=== PATIENT | male | born 1975 | race Caucasian/White ===

== ENCOUNTER 2018-07-25 09:50 | Emergency (ER) | payer SELFPAY ==
--- NOTE | 2018-07-25 10:14 | ER ---
Nurse's Notes [facility] Name: Keyshawn Abernathy Age: 42 yrs Sex: Male : 1975 Arrival Date: 07/25/2018 Time: 09:55 Bed 12 Private MD: None, None Diagnosis: Acute sinusitis;Otitis media, unspecified, right ear Presentation: 07/25 10:03 Presenting complaint: Patient states: I have been sick with sinus pressure, cough, la1 congestion since Sunday and work sent me home yesterday and said I couldn't come back without a note. Transition of care: patient was not received from another setting of care. Onset of symptoms was July 25, 2018. Risk Assessment: Do you want to hurt yourself or someone else? Patient reports no desire to harm self or others. Initial Sepsis Screen: Does the patient meet any 2 criteria? No. Patient's initial sepsis screen is negative. Does the patient have a suspected source of infection? No. Patient's initial sepsis screen is negative. Care prior to arrival: None. 10:03 Method Of Arrival: Ambulatory la1 10:03 Acuity: DOROTEO 4 la1 Historical: - Allergies: 10:04 Codeine; la1 - PMHx: 10:04 None; la1 - Immunization history:: Adult Immunizations up to date. - Social history:: Smoking status: Patient/guardian denies using tobacco. - Ebola Screening: : No symptoms or risks identified at this time. Screenin:05 Abuse screen: Denies threats or abuse. Nutritional screening: No deficits noted. la1 Tuberculosis screening: No symptoms or risk factors identified. Fall Risk None identified. Assessment: 10:05 General: Appears in no apparent distress. Behavior is calm, cooperative. Pain: la1 Complains of pain in forehead. Neuro: Level of Consciousness is awake, alert, obeys commands, Oriented to person, place, time, situation. Cardiovascular: Capillary refill < 3 seconds Patient's skin is warm and dry. Respiratory: Airway is patent Respiratory effort is even, unlabored, Respiratory pattern is regular, symmetrical, Breath sounds are clear bilaterally. Respiratory: Reports cough that is productive. GI: No signs and/or symptoms were reported involving the gastrointestinal system. : No signs and/or symptoms were reported regarding the genitourinary system. Vital Signs: 10:04 BP 140 / 90; Pulse 71; Resp 16; Temp 98.0; Pulse Ox 98% on R/A; Weight 117.93 kg; la1 Height 5 ft. 11 in. (180.34 cm); 10:04 Body Mass Index 36.26 (117.93 kg, 180.34 cm) la1 ED Course: 09:55 Patient arrived in ED. sb2 09:55 None, None is Private Physician. sb2 09:56 Yaz Fields FNP-C is [facility]. kb 09:56 Ángel Enciso MD is Attending Physician. kb 10:04 Triage completed. la1 10:05 Arm band placed on left wrist. la1 10:05 Call light in reach. Side rails up X 1. la1 10:06 No provider procedures requiring assistance completed. Patient did not have IV access la1 during this emergency room visit. 10:21 Bernice Daniels, RN is Primary Nurse. iw Administered Medications: No medications were administered Outcome: 10:13 Discharge ordered by . kb 10:20 Discharged to home ambulatory. iw 10:20 Condition: good 10:20 Discharge instructions given to patient, Instructed on discharge instructions, follow up and referral plans. medication usage, Demonstrated understanding of instructions, follow-up care, medications, Prescriptions given X 1. 10:21 Patient left the ED. iw Signatures: Yaz Fields FNP-C FNP-Ckb Williams, Irene, RN BITA iw Yonatan Mann RN RN la1 Gena Florence sb2
--- NOTE | 2018-07-25 10:14 | EDPHYS ---
Physician Documentation [facility] Name: Keyshawn Abernathy Age: 42 yrs Sex: Male : 1975 Arrival Date: 07/25/2018 Time: 09:55 Bed 12 Private MD: None, None ED Physician Ángel Enciso HPI: 07/25 10:12 This 42 yrs old Male presents to ER via Ambulatory with complaints of Flu kb Symptoms. 10:12 The patient or guardian reports cough, that is intermittent, described as moderate, kb with productive sputum, that is green, flu symptoms, low-grade fever, myalgias. Onset: The symptoms/episode began/occurred 5 day(s) ago. Severity of symptoms: At their worst the symptoms were moderate, in the emergency department the symptoms have improved, mildly. Modifying factors: The symptoms are alleviated by nothing, the symptoms are aggravated by nothing. Associated signs and symptoms: Pertinent positives: earache, fever, sore throat, Pertinent negatives: chest pain, diarrhea, nausea, rhinorrhea, vomiting. The patient has not experienced similar symptoms in the past. The patient has not recently seen a physician. Historical: - Allergies: 10:04 Codeine; la1 - PMHx: 10:04 None; la1 - Immunization history:: Adult Immunizations up to date. - Social history:: Smoking status: Patient/guardian denies using tobacco. - Ebola Screening: : No symptoms or risks identified at this time. ROS: 10:10 Cardiovascular: Negative for chest pain, palpitations, and edema, Abdomen/GI: Negative kb for abdominal pain, nausea, vomiting, diarrhea, and constipation, Back: Negative for injury and pain, : Negative for injury, bleeding, discharge, and swelling, MS/Extremity: Negative for injury and deformity, Skin: Negative for injury, rash, and discoloration, Neuro: Negative for headache, weakness, numbness, tingling, and seizure. 10:10 Constitutional: Positive for fever, Negative for body aches, chills, fatigue, malaise, poor PO intake, weight loss. 10:10 ENT: Positive for ear pain, sinus congestion, sinus pain, sore throat. 10:10 Respiratory: Positive for cough, Negative for dyspnea on exertion, hemoptysis, orthopnea, pleurisy, shortness of breath, sputum production, wheezing. Exam: 10:12 Constitutional: This is a well developed, well nourished patient who is awake, alert, kb and in no acute distress. Neck: Trachea midline, no thyromegaly or masses palpated, and no cervical lymphadenopathy. Supple, full range of motion without nuchal rigidity, or vertebral point tenderness. No Meningismus. Chest/axilla: Normal chest wall appearance and motion. Nontender with no deformity. No lesions are appreciated. Cardiovascular: Regular rate and rhythm with a normal S1 and S2. No gallops, murmurs, or rubs. Normal PMI, no JVD. No pulse deficits. Respiratory: Lungs have equal breath sounds bilaterally, clear to auscultation and percussion. No rales, rhonchi or wheezes noted. No increased work of breathing, no retractions or nasal flaring. Abdomen/GI: Soft, non-tender, with normal bowel sounds. No distension or tympany. No guarding or rebound. No evidence of tenderness throughout. Skin: Warm, dry with normal turgor. Normal color with no rashes, no lesions, and no evidence of cellulitis. MS/ Extremity: Pulses equal, no cyanosis. Neurovascular intact. Full, normal range of motion. Neuro: Awake and alert, GCS 15, oriented to person, place, time, and situation. Cranial nerves II-XII grossly intact. Motor strength 5/5 in all extremities. Sensory grossly intact. Cerebellar exam normal. Normal gait. 10:12 Head/face: Sinus tenderness, that is marked, is located over the right ethmoid sinus and right maxillary sinus. 10:12 ENT: TM's: bulging, on the right, erythema, that is mild, on the right. Vital Signs: 10:04 BP 140 / 90; Pulse 71; Resp 16; Temp 98.0; Pulse Ox 98% on R/A; Weight 117.93 kg; la1 Height 5 ft. 11 in. (180.34 cm); 10:04 Body Mass Index 36.26 (117.93 kg, 180.34 cm) la1 MDM: 10:06 Patient medically screened. kb 10:11 Data reviewed: vital signs, nurses notes. Data interpreted: Pulse oximetry: on room air kb is 98 %. Interpretation: normal. Counseling: I had a detailed discussion with the patient and/or guardian regarding: the historical points, exam findings, and any diagnostic results supporting the discharge/admit diagnosis, the need for outpatient follow up, a family practitioner, to return to the emergency department if symptoms worsen or persist or if there are any questions or concerns that arise at home. Administered Medications: No medications were administered Disposition: 10:23 Co-signature as Attending Physician, Ángel Enciso MD. rn Disposition: 07/25/18 10:13 Discharged to Home. Impression: Acute sinusitis, Otitis media, unspecified, right ear. - Condition is Stable. - Discharge Instructions: Otitis Media, Adult, [id number], Sinusitis, Adult, [id number]. - Prescriptions for Amoxicillin 875 mg Oral Tablet - take 1 tablet by ORAL route every 12 hours for 7 days; 14 tablet. - Medication Reconciliation Form, Thank You Letter, Antibiotic Education, Prescription Opioid Use, Work release form form. - Follow up: Emergency Department; When: As needed; Reason: Worsening of condition. Follow up: Private Physician; When: 2 - 3 days; Reason: Recheck today's complaints, Continuance of care, Re-evaluation by your physician. Signatures: Yaz Fields, LIMNOLOGIST-C LIMNOLOGIST-Ckb Bernice Daniels, RN Ángel Singh MD MD rn Attema, Lee, RN RN la1 Corrections: (The following items were deleted from the chart) 10:21 10:13 07/25/2018 10:13 Discharged to Home. Impression: Acute sinusitis; Otitis media, iw unspecified, right ear. Condition is Stable. Forms are Medication Reconciliation Form, Thank You Letter, Antibiotic Education, Prescription Opioid Use. Follow up: Emergency Department; When: As needed; Reason: Worsening of condition. Follow up: Private Physician; When: 2 - 3 days; Reason: Recheck today's complaints, Continuance of care, Re-evaluation by your physician. kb
== END 2018-07-25 10:21 | disposition home or self-care (01) ==
LOC: ER 09:50
DX: J01.90 Acute sinusitis, unspecified (principal); H66.91 Otitis media, unspecified, right ear; Z88.5 Allergy status to narcotic agent
CPT/HCPCS: 99282

== ENCOUNTER 2018-11-05 14:14 | Emergency (ER) | payer BC, SELFPAY ==
--- OUTSIDE RECORDS SUMMARY | 2018-11-05 14:16 | XMS REPORT | Clinical Summary ---
:1975 [facility] Address [address] [place] [address] Care Team Providers Name Role Phone Popeye Primary Care Provider Allergies Active Allergy Reactions Severity Noted Date Comments Codeine 05/28/2013 Medications Medication Sig Dispensed Refills Start Date End Date Status HYDROcodone-acetaminop Take 1 tablet by 30 tablet 0 06/25/2013 Active hen (NORCO 5-325) mouth 2 (two) 5-325 mg per tablet times daily as needed. divalproex (DEPAKOTE) Take 500 mg by 0 Active 500 MG EC tablet mouth 2 (two) times daily. QUEtiapine (SEROQUEL) Take 50 mg by 0 Active 50 MG tablet mouth nightly. Active Problems Problem Noted Date Cellulitis and abscess of leg 06/24/2013 Abscess 06/23/2013 Family History Medical History Relation Name Comments Unremarkable Father Cancer Maternal Aunt Unremarkable Mother Cancer Paternal Aunt Diabetes Son Relation Name Status Comments Father Maternal Aunt Maternal Grandfather Maternal Grandmother Mother Paternal Aunt Alive Paternal Grandfather Paternal Grandmother Son Social History Tobacco Use Types Packs/Day Years Used Date Never Smoker Smokeless Tobacco: Current User Comments: A can a day for 33 years Alcohol Use Drinks/Week oz/Week Comments Yes 2 Cans of beer 1.2 Sex Assigned at Date Recorded Not on file Job Start Date Occupation Industry Not on file Not on file Not on file Travel History Travel Start Travel End No recent travel history available. Last Filed Vital Signs Not on file Plan of Treatment Not on file Results Not on fileafter 11/04/2017 Advance Directives For more information, please contact:[facility] [place], [place] [phone] Code Status Date Activated Date Inactivated Comments Code ONE 06/23/2013 2:18 PM 06/25/2013 12:53 PM
--- OUTSIDE RECORDS SUMMARY | 2018-11-05 14:17 | XMS REPORT ---
:1975 [facility] Address [address] [place] [address] Care Team Providers Name Role Phone JUAN LUIS TORRES Unavailable Unavailable Problems This patient has no known problems. Allergies, Adverse Reactions, Alerts This patient has no known allergies or adverse reactions. Medications This patient has no known medications. Results Test Description Test Time Test Comments Text Results Atomic Results Result Comments CREATINE KINASE (CK), TOTAL AND MB 2017-04-05 10:08:00 Test Item Value Reference Range Comments CREATINE KINASE TOTAL (BEAKER) (test myan=210) 330 U/L 30-300 CREATINE KINASE-MB (BEAKER) (test mith=461) 3.4 ng/mL 0.0-4.9 CREATINE KINASE-MB INDEX (BEAKER) (test npbk=236) 1.0 % CK-MB Reference Range:<5 Normal5-10 Borderline>10 AbnormalTROPONIN [id number] 10:08:00 Test Item Value Reference Range Comments TROPONIN I (BEAKER) (test jkre=827) < ng/mL 0.00-0.15 Troponin I (TnI) levels must be interpreted in the context of the presenting symptoms and the clinical findings. Elevated TnI levels indicate myocardial damage, but are not specific for ischemic heart disease. Elevated TnI levels are seen in patients with other cardiac conditions (including myocarditis and congestive heart failure), and slight TnI elevations occur in patients with other conditions, including sepsis, renal failure, acidosis, acute neurological disease, and persistent tachyarrhythmia.COMPREHENSIVE METABOLIC [id number] 10:00:00 Test Item Value Reference Range Comments TOTAL PROTEIN (BEAKER) 7.7 gm/dL 6.0-8.5 (test osjo=360) ALBUMIN (BEAKER) (test 4.3 g/dL 3.5-5.0 tqyd=1640) ALKALINE PHOSPHATASE 46 U/L 30-115 (BEAKER) (test ugue=828) BILIRUBIN TOTAL (BEAKER) 0.4 mg/dL 0.1-1.3 (test wiqv=182) SODIUM (BEAKER) (test 141 meq/L 135-148 oijq=003) POTASSIUM (BEAKER) (test 3.9 meq/L 3.5-5.5 fuxz=072) CHLORIDE (BEAKER) (test 106 meq/L 98-106 vive=775) CO2 (BEAKER) (test 23 meq/L 20-31 cqhj=698) BLOOD UREA NITROGEN 15 mg/dL 10-26 (BEAKER) (test tgmo=892) CREATININE (BEAKER) (test 1.00 mg/dL 0.50-1.20 wcdi=837) GLUCOSE RANDOM (BEAKER) 108 mg/dL 70-110 (test uyiz=252) CALCIUM (BEAKER) (test 9.3 mg/dL 8.5-10.5 qduf=260) AST (SGOT) (BEAKER) (test 26 U/L 5-40 jdww=560) ALT (SGPT) (BEAKER) (test 25 U/L 6-50 nrjp=838) EGFR (BEAKER) (test 82 mL/min/1.73 sq m ESTIMATED GFR IS NOT fkob=6120) ACCURATE CREATININE CLEARANCE IN PREDICTING GLOMERULAR FILTRATION RATE. ESTIMATED GFR IS NOT APPLICABLE FOR DIALYSIS PATIENTS. URINALYSIS W/ [id number] 09:48:00 Test Item Value Reference Range Comments COLOR (BEAKER) (test nyca=068) Yellow CLARITY (BEAKER) (test idxa=022) Clear SPECIFIC GRAVITY UA (BEAKER) (test cxsb=943) 1.024 1.001-1.035 PH UA (BEAKER) (test rete=309) 5.0 5.0-8.0 PROTEIN UA (BEAKER) (test gbyh=614) Negative Negative GLUCOSE UA (BEAKER) (test sdmv=998) Negative Negative KETONES UA (BEAKER) (test ukvf=706) Negative Negative BILIRUBIN UA (BEAKER) (test vmji=099) Negative Negative BLOOD UA (BEAKER) (test tnmj=498) Negative Negative NITRITE UA (BEAKER) (test gfiz=453) Negative Negative LEUKOCYTE ESTERASE UA (BEAKER) (test lgzz=639) Trace Negative UROBILINOGEN UA (BEAKER) (test ktde=711) < mg/dL 0.2-1.0 RBC UA (BEAKER) (test fdpl=780) < /HPF WBC UA (BEAKER) (test zbrl=756) 4 /HPF MUCUS (BEAKER) (test mzhi=8546) Rare SQUAMOUS EPITHELIAL (BEAKER) (test efmf=070) 1 /HPF SOURCE(BEAKER) (test iswp=2025) CBC W/PLT COUNT & AUTO [id number] 09:33:00 Test Item Value Reference Range Comments WHITE BLOOD CELL COUNT (BEAKER) (test meiw=868) 7.4 K/ L 4.0-10.0 RED BLOOD CELL COUNT (BEAKER) (test vcok=446) 4.95 M/ L 4.20-5.80 HEMOGLOBIN (BEAKER) (test qkyf=780) 14.4 GM/DL 13.0-16.8 HEMATOCRIT (BEAKER) (test vpym=791) 44.1 % 40.0-50.0 MEAN CORPUSCULAR VOLUME (BEAKER) (test lwgf=538) 89.1 fL 82.0-98.0 MEAN CORPUSCULAR HEMOGLOBIN (BEAKER) (test 29.1 pg 27.0-33.0 shtb=975) MEAN CORPUSCULAR HEMOGLOBIN CONC (BEAKER) (test 32.7 GM/DL 32.0-36.0 ihzh=643) RED CELL DISTRIBUTION WIDTH (BEAKER) (test 14.1 % 12.0-15.0 iczk=822) PLATELET COUNT (BEAKER) (test ksur=139) 319 K/CU MM 150-430 MEAN PLATELET VOLUME (BEAKER) (test sqmy=918) 8.4 fL 6.5-10.5 NUCLEATED RED BLOOD CELLS (BEAKER) (test 0 /100 WBC 0-0 csla=670) NEUTROPHILS RELATIVE PERCENT (BEAKER) (test 52 % thek=698) LYMPHOCYTES RELATIVE PERCENT (BEAKER) (test 31 % cxrj=258) MONOCYTES RELATIVE PERCENT (BEAKER) (test 10 % erdl=705) EOSINOPHILS RELATIVE PERCENT (BEAKER) (test 5 % cnti=624) BASOPHILS RELATIVE PERCENT (BEAKER) (test 1 % ojjj=343) NEUTROPHILS ABSOLUTE COUNT (BEAKER) (test 3.80 K/ L 1.80-8.00 kyyt=929) LYMPHOCYTES ABSOLUTE COUNT (BEAKER) (test 2.30 K/ L 1.48-4.50 sbez=494) MONOCYTES ABSOLUTE COUNT (BEAKER) (test 0.80 K/ L 0.00-1.30 qill=315) EOSINOPHILS ABSOLUTE COUNT (BEAKER) (test 0.40 K/ L 0.00-0.50 hzrn=182) BASOPHILS ABSOLUTE COUNT (BEAKER) (test 0.10 K/ L 0.00-0.20 cgdg=321)
--- NOTE | 2018-11-05 14:45 | EDPHYS ---
Physician Documentation [facility] Name: Keyshawn Abernathy Age: 42 yrs Sex: Male : 1975 Arrival Date: 11/05/2018 Time: 14:18 Bed 9 Private MD: ED Physician Jun Rachel HPI: 11/05 14:43 This 42 yrs old Male presents to ER via Ambulatory with complaints of Knee ma2 Pain. 14:43 The patient presents with pain. The complaints affect the lateral aspect of right knee ma2 and medial aspect of right knee. Onset: The symptoms/episode began/occurred gradually, 2 year(s) ago. Associated signs and symptoms: Pertinent negatives calf tenderness, numbness, swelling, vomiting. Severity of symptoms: At their worst the symptoms were mild, moderate, in the emergency department the symptoms have resolved. The patient has experienced similar episodes in the past. Historical: - Allergies: 14:21 Codeine; sv - PMHx: 14:21 None; sv - PSHx: 14:21 None; sv - Immunization history:: Flu vaccine is not up to date. - Social history:: Smoking status: Patient uses tobacco products, chewing tobacco, Patient/guardian denies using alcohol, street drugs, The patient lives with family. - Ebola Screening: : No symptoms or risks identified at this time. - Family history:: not pertinent. ROS: 14:43 Constitutional: Negative for fever, chills, and weight loss, Cardiovascular: Negative ma2 for chest pain, palpitations, and edema. 14:43 All other systems are negative. Exam: 14:43 Constitutional: This is a well developed, well nourished patient who is awake, alert, ma2 and in no acute distress. Chest/axilla: Normal chest wall appearance and motion. Nontender with no deformity. No lesions are appreciated. Cardiovascular: Regular rate and rhythm with a normal S1 and S2. No gallops, murmurs, or rubs. Normal PMI, no JVD. No pulse deficits. Respiratory: Lungs have equal breath sounds bilaterally, clear to auscultation and percussion. No rales, rhonchi or wheezes noted. No increased work of breathing, no retractions or nasal flaring. Abdomen/GI: Soft, non-tender, with normal bowel sounds. No distension or tympany. No guarding or rebound. No evidence of tenderness throughout. Skin: Warm, dry with normal turgor. Normal color with no rashes, no lesions, and no evidence of cellulitis. MS/ Extremity: Pulses equal, no cyanosis. Neurovascular intact. Full, normal range of motion. Neuro: Awake and alert, GCS 15, oriented to person, place, time, and situation. Cranial nerves II-XII grossly intact. Motor strength 5/5 in all extremities. Sensory grossly intact. Cerebellar exam normal. Normal gait. Vital Signs: 14:21 BP 138 / 90; Pulse 72; Resp 18; Temp 98.3; Pulse Ox 97% ; Weight 104.33 kg; Height 5 sv ft. 11 in. (180.34 cm); Pain 6/10; 14:21 Body Mass Index 32.08 (104.33 kg, 180.34 cm) sv MDM: 14:36 Patient medically screened. ma2 14:43 Differential diagnosis: contusion, abrasion, tendonitis. Data reviewed: vital signs, ma2 nurses notes. Counseling: I had a detailed discussion with the patient and/or guardian regarding: the historical points, exam findings, and any diagnostic results supporting the discharge/admit diagnosis, the presence of at least one elevated blood pressure reading (>120/80) during this emergency department visit, the need for outpatient follow up. Administered Medications: No medications were administered Disposition: 11/05/18 14:44 Discharged to Home. Impression: Pain in right knee. - Condition is Stable. - Discharge Instructions: Knee Pain. - Prescriptions for Tylenol- Codeine #3 300-30 mg Oral Tablet - take 2 tablet by ORAL route every 6 hours As needed; 30 tablet. - Medication Reconciliation Form, Thank You Letter, Antibiotic Education, Prescription Opioid Use form. - Follow up: Private Physician; When: Tomorrow; Reason: If symptoms return, Continuance of care. Signatures: Brisa Wolff RN RN sv Smirch, Shelby, RN RN ss Alzahri, Mohammad, MD MD ma2 Corrections: (The following items were deleted from the chart) 14:58 14:44 11/05/2018 14:44 Discharged to Home. Impression: Pain in right knee. Condition is ss Stable. Forms are Medication Reconciliation Form, Thank You Letter, Antibiotic Education, Prescription Opioid Use. Follow up: Private Physician; When: Tomorrow; Reason: If symptoms return, Continuance of care. ma2
--- NOTE | 2018-11-05 14:45 | ER ---
Nurse's Notes [facility] Name: Keyshawn Abernathy Age: 42 yrs Sex: Male : 1975 Arrival Date: 11/05/2018 Time: 14:18 Bed 9 Private MD: Diagnosis: Pain in right knee Presentation: 11/05 14:20 Presenting complaint: Patient states: right knee pain/swelling x 1 day. Transition of sv care: patient was not received from another setting of care. Onset of symptoms was November 04, 2018. Care prior to arrival: None. 14:20 Method Of Arrival: Ambulatory sv 14:20 Acuity: DOROTEO 4 sv 14:57 Risk Assessment: Do you want to hurt yourself or someone else? Patient reports no ss desire to harm self or others. Initial Sepsis Screen: Does the patient meet any 2 criteria? No. Patient's initial sepsis screen is negative. Does the patient have a suspected source of infection? No. Patient's initial sepsis screen is negative. Triage Assessment: 14:20 General: Appears in no apparent distress. uncomfortable, well developed, Behavior is sv calm, cooperative, appropriate for age. Pain: Complains of pain in right knee Pain currently is 6 out of 10 on a pain scale. Neuro: Level of Consciousness is awake, alert, obeys commands, Oriented to person, place, time, situation, Gait is steady. Respiratory: Respiratory effort is even, unlabored, Respiratory pattern is regular, symmetrical. Historical: - Allergies: 14:21 Codeine; sv - PMHx: 14:21 None; sv - PSHx: 14:21 None; sv - Immunization history:: Flu vaccine is not up to date. - Social history:: Smoking status: Patient uses tobacco products, chewing tobacco, Patient/guardian denies using alcohol, street drugs, The patient lives with family. - Ebola Screening: : No symptoms or risks identified at this time. - Family history:: not pertinent. Screenin:56 Abuse screen: Denies threats or abuse. Denies injuries from another. Nutritional ss screening: No deficits noted. Tuberculosis screening: No symptoms or risk factors identified. Never had TB. Fall Risk None identified. Assessment: 14:57 Reassessment: Patient appears in no apparent distress at this time. Patient and/or ss family updated on plan of care and expected duration. Pain level reassessed. Patient is alert, oriented x 3, equal unlabored respirations, skin warm/dry/pink. Vital Signs: 14:21 BP 138 / 90; Pulse 72; Resp 18; Temp 98.3; Pulse Ox 97% ; Weight 104.33 kg; Height 5 sv ft. 11 in. (180.34 cm); Pain 6/10; 14:21 Body Mass Index 32.08 (104.33 kg, 180.34 cm) sv ED Course: 14:18 Patient arrived in ED. mr 14:21 Triage completed. sv 14:21 Arm band placed on. sv 14:36 Jun Rachel MD is Attending Physician. ma2 14:56 Rochelle Savage, BITA is Primary Nurse. ss 14:56 Patient has correct armband on for positive identification. Bed in low position. Call ss light in reach. 14:56 No provider procedures requiring assistance completed. Patient did not have IV access ss during this emergency room visit. Administered Medications: No medications were administered Outcome: 14:[address] . [facility] 14:56 Discharged to home ambulatory, with family. ss 14:56 Condition: good 14:56 Discharge instructions given to patient, Instructed on discharge instructions, follow up and referral plans. medication usage, Demonstrated understanding of instructions, follow-up care, medications. 14:58 Patient left the ED. ss Signatures: Brisa Wolff RN RN WongLuisa mr Rochelle Savage, BITA SUNSHINE Jun Rachel MD MD ma2
== END 2018-11-05 14:58 | disposition home or self-care (01) ==
LOC: ER 14:14
DX: M25.561 Pain in right knee (principal); Z88.6 Allergy status to analgesic agent; Z72.0 Tobacco use
CPT/HCPCS: 99281